=== PATIENT | female | born 1950 | race Hispanic/Latino ===

== ENCOUNTER 2024-03-27 20:21 | Emergency (ER) | payer MEDICARE ==
[~2024-03-27] VITALS: Ht 152.4 cm; Wt 54.4 kg
[2024-03-27 20:32] VITALS: RESP 16; TEMP 98.8
[2024-03-27 22:35] VITALS: PULSE 77
[2024-03-27] MEDS ORDERED: ULTRAM 50MG50 MG PO (23:08)
[2024-03-27 23:18] VITALS: BP 146/66; O2SAT 100
== END 2024-03-27 23:14 | disposition home or self-care (01) ==
LOC: ER 20:26
DX: S52.591A Other fractures of lower end of right radius, initial encounter for closed fracture (principal); W01.198A Fall on same level from slipping, tripping and stumbling with subsequent striking against other object, initial encounter; Y92.89 Other specified places as the place of occurrence of the external cause; K21.9 Gastro-esophageal reflux disease without esophagitis; M81.0 Age-related osteoporosis without current pathological fracture
CPT/HCPCS: 99283